=== PATIENT | female | born 1990 | race Caucasian/White ===

== ENCOUNTER 2024-03-17 13:55 | Emergency (ER) | payer OTHER, SELFPAY ==
[2024-03-17 14:02] VITALS: BP 127/79
[2024-03-17 14:23] LABS: % Basophils 0.1 % (0-2); % Immature Granulocytes 0.4 % (0-0.5); % Lymphocytes 11.4 % (20.5-51.1); % Monocytes 2.1 % (1.7-9.3); Absolute Immature Granulocytes 0.1 10^3/uL (0-0.05); Absolute Lymphocytes 1.6 10^3/uL (1.2-3.4); Absolute Monocytes 0.3 10^3/uL (0.1-0.6); Absolute Neutrophils 11.7 10^3/uL (1.4-6.5); Hematocrit 43.8 % (37.0-47.0); Hemoglobin 14.5 g/dL (12.0-16.0); Mean Corp Hgb Conc. 33.1 g/dL (33.0-37.0); Mean Corpuscular Volume 93.8 fL (81.0-99.0); Nucleated Red Blood Cells % 0 %; Platelet Count 278 10^3/uL (130-400); Red Blood Cell Count 4.67 10^6/uL (4.20-5.40); Red Cell Dist. Width 12.3 % (11.5-14.5); White Blood Cell Count 13.6 10^3/uL (4.8-10.8)
[2024-03-17 14:36] LABS: Amphetamines Negative (Negative); Barbiturates Negative (Negative); Benzodiazepines Negative (Negative); Buprenorphine Negative (Negative); Cocaine Negative (Negative); Marijuana Negative (Negative); Methadone Negative (Negative); Methamphetamines Negative (Negative); Opiates Negative (Negative); Phencyclidine Negative (Negative); Tricyclic Antidepressants Negative (Negative)
[2024-03-17 14:37] LABS: ALT (SGPT) 26 U/L (0-35); AST (SGOT) 26 U/L (14-36); Albumin 4.8 g/dl (3.5-5.0); Alkaline Phosphatase 49 U/L (38-126); Blood Urea Nitrogen 15 mg/dl (7-17); Calcium 9.6 mg/dl (8.4-10.2); Carbon Dioxide 22 mmol/L (22-30); Chloride 105 mmol/L (98-107); Glucose 97 mg/dl (70-99); Potassium 5.5 mmol/L (3.5-5.1); Sodium 139 mmol/L (135-145); Total Bilirubin 0.4 mg/dl (0.2-1.3); eGFR > 60.00
[2024-03-17 16:19] VITALS: BMI 21.7
[2024-03-17 16:21] VITALS: BP 106/72
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
[2024-03-17] MEDS: NSS 1000 IV ×2 (16:53→18:30)
[2024-03-17] MEDS: ZOFRAN 4 MG IV (16:54)
[2024-03-17 17:41] LABS: HCG, Urine Qualitative Screen Negative
[2024-03-17 18:01] LABS: Lipase 65 U/L (23-300)
[2024-03-17 19:00] VITALS: BP 104/68
== END 2024-03-17 21:30 | disposition home or self-care (01) ==
LOC: EMR 13:55
PROVIDERS: Emergency Medicine; EMERGENCY PHYSICIAN Emergency Medicine; FAMILY PHYSICIAN Family Medicine
DX: A08.4 Viral intestinal infection, unspecified (principal); E87.5 Hyperkalemia; Z79.3 Long term (current) use of hormonal contraceptives
CPT/HCPCS: 96374; 96361; 99284; 80053; 80306; 81025; 83690; 85025; 93005

== ENCOUNTER 2024-05-26 18:03 | Emergency (ER) | payer OTHER, SELFPAY ==
[2024-05-26 18:09] VITALS: BP 117/82
[2024-05-26 18:41] VITALS: BP 102/53
--- NOTE | 2024-05-26 18:49 | ED.GENMED ---
History of Present Illness
General
Chief Complaint: Chest Pain
Source: patient
Exam Limitations: none
Time Seen by Provider: 05/26/24 18:47
Nursing documentation reviewed up to this point in time: agreed with
History of Present Illness
History of Present Illness:
33-year-old female with a past medical history of anxiety, depression, who presents emergency department today with concerns of left-sided chest pain. Patient states that this pain woke her up from sleep this morning at around 5:30 AM. Patient
states that she took ibuprofen at that time which seemed to help and she is able to go back to sleep. Patient reports that she is pain-free multiple hours today but then an hour or 2 ago, her pain returned. Patient also states that she had
intermittent dizziness earlier which has resolved. She states that she also noticed when looking down at her Apple Watch today, her heart rate was elevated and the 110s to 120s at times. Patient denies any sensation of palpitations. Patient
denies any syncopal episodes. Of note, patient was evaluated in our emergency department 3 months ago and was noted to have a long QT interval on her EKG. Patient states that that has since resolved but she does have appointment scheduled with
cardiology group 6 days from today. Patient initially went to urgent care but her EKG there was noted to have a shortened ME interval and so she was sent to the ER for further evaluation. Patient does take oral control pills but she denies
any recent long distance travel any recent surgeries any recent hospitalizations.
Review of Systems
Review of Systems
All Other Systems: ROS reviewed and negative except as documented in HPI and ROS
Phy Exam
Physical Exam
Physical Exam:
General: Patient is well appearing and in no acute distress; non-toxic
Skin: Warm and dry, no rashes or lesions
Head: Normocephalic, atraumatic
Eyes: Sclera non-icteric. EOMs intact.
Cardiac: Regular rate and rhythm, no murmurs, no tenderness to palpation of the external chest wall
Peripheral Vascular: No lower extremity swelling or edema, no tenderness to palpation in the calves bilaterally
Pulm: Normal respiratory effort, no wheezes, rales, rhonchi
Abdomen: No abdominal tenderness to palpation
Neuro: CN II-XII intact, no focal neurologic deficits.
Psychiatric: Appropriate mood and affect.
Scores
Heart Score for Chest Pain Patients
STEMI patient?: No
History: Slightly or Non-Suspicious
ECG: Normal
Age: </= 45 years
Risk Factors: No Risk Factors
Troponin: </= Normal Limit
Heart Score for Chest Pain Patients: 0
Heart Score Risk: 2.5% MACE over next 6 weeks
Course
Orders/Labs/Results
Orders:
Orders
05/26/24 18:03
Electrocardiogram (*1) Urgent
Reason for Study: Other
Other Reason for Exam: abnormal EKG
05/26/24 18:04
EKG- Treatment ONCE
05/26/24 18:49
Complete Blood Count/With Diff Urgent
Comprehensive Metabolic Panel Urgent
HCG, Serum Qualitative Screen Urgent
Comment: ADD ON
Magnesium Urgent
Comment: ADD ON
Troponin I Urgent
05/26/24 18:50
Add On- LAB Urgent
Tests Added?: qualitative HCG
05/26/24 19:26
Add On- LAB Urgent
Tests Added?: magnesium
CR Chest - 2 Views Urgent
Comment:
Reason For Exam: left sided chest pain
05/26/24 19:38
D-Dimer Urgent
Abnormal Lab Results
05/26/24
18:49
MCH 31.2 H pg
(27.0-31.0)
MPV 10.9 H fL
(7.4-10.4)
Sodium 134 L mmol/L
(135-145)
Glucose 102 H mg/dl
(70-99)
05/26/24 18:49
05/26/24 18:49
Vital Signs
Initial and Last Documented VS:
Initial Vital Signs
Temp Pulse Resp BP Pulse Ox
98.3 F 90 16 117/82 100
05/26/24 18:09 05/26/24 18:09 05/26/24 18:09 05/26/24 18:09 05/26/24 18:09
Last Documented Vital Signs
Temp Pulse Resp BP Pulse Ox
98.3 F 82 12 108/61 100
05/26/24 18:09 05/26/24 21:00 05/26/24 21:00 05/26/24 21:00 05/26/24 19:00
MDM/Problems Addressed
Differential Diagnosis Includes:
ddx include PE, ACS, costochondritis, pneumothorax,
MDM/Problems Addressed:
33-year-old female with past medical history of anxiety presents emergency department today with concerns of left-sided chest pain. She also notes some tachycardia noted to her Apple Watch at home. Patient denies any syncopal episodes. In light
of tachycardia, use of OCPs, and chest pain at home, will send off D-dimer. Initial EKG shows normal sinus rhythm with no concerning ischemic changes. Troponin undetectable.
D-dimer negative. Chest x-ray shows no acute findings. Electrolytes within normal limits. Patient has a cardiology appointment scheduled 6 days from today in light of abnormal EKG noted in February where she had a prolonged QT however that has
since resolved on today's EKG. On reassessment, patient does not have any pain and states that she feels well. Patient stable for discharge with prompt outpatient follow-up. Return precautions discussed. Patient stable for discharge.
Chronic conditions affecting care:
anxiety
*Pulse Oximetry
Patient hypoxic: no
*EKG
Interpreted by ED Provider?: Yes
EKG Intrepretation Date: 05/26/24
Interpretation: normal
Comparison EKG: no changes
Heart Rate: 85
Rate: normal
Rhythm: sinus
[place]: normal axis
Interval: normal interval
*Critical Care Note
Total Time (30-74mins, 75-104mins- exclusive of procedures): Not Applicable
Data Reviewed
Review of Other/Old Records Reveals: Records (Reviewed previous ER physician documentation from 03/17/2024 patient seen for viral gastroenteritis)
ED Attending Note
-
Portions of this chart may have been created with voice recognition software.� Occasional wrong word or��sound alike� substitutions may have occurred due to the inherent limitations of voice recognition software.
Discharge Plan
Departure
Patient Disposition: Home (Routine Discharge)
Date of Disposition: 05/26/24
Time of Disposition: 21:22
Patient with high blood pressure during this ER visit?: Yes
Condition: Good
Discharge Problem:
Chest pain
Instructions: Chest pain
Prescriptions:
No Action
Hair,Skin and Nails Tablet
1 tab PO DAILY
drospirenone-ethinyl estradiol [[place]cella] 3-0.03 mg Tablet
1 tab PO DAILY
Wegovy 1.7 mg/0.75 mL Pen Injector
1.7 mg SC QWEEK
magnesium
1 tab PO DAILY
Patient Comments:
pt unsure of dose
Referrals:
Emir Hutton MD [Active] - Call in 1-3 days for appt
Corine Newton DO [Family Provider] -
Activity Restrictions/Additional Instructions:
Your troponin today was undetectable. Your D-dimer was normal. Your electrolyte levels were normal as well.
Please follow up with your scheduled cardiology appointment in 6 days.
PLEASE RETURN TO THE EMERGENCY DEPARTMENT SHOULD YOU DEVELOP LIGHTHEADEDNESS, DIZZINESS, ACUTE WORSENING OF YOUR SYMPTOMS, VISUAL LOSS, FAINTING SPELLS, SHORTNESS OF BREATH, OR ANY OTHER SIGNS OR SYMPTOMS CONCERNING TO YOU.
Interventions
Interventions:
*Risk Screen - Suicide Last Done: 05/26/24 18:09
*General Assessment Last Done: 05/26/24 18:09
*Neglect/Abuse Screening Last Done: 05/26/24 18:46
*ED- Fall Risk Assessment Last Done: 05/26/24 18:46
*ED COVID-19 Vaccine History Last Done: 05/26/24 18:46
*Nursing Disposition Last Done: 05/26/24 21:50
ED- Cardiac Assessment Last Done: 05/26/24 19:16
Discharge Date and Time
Discharge Date/Time: 05/26/24 21:50
Print Language: CHINESE
[2024-05-26 19:00] VITALS: BP 106/69
[2024-05-26 19:00] LABS: % Basophils 0.2 % (0-2); % Eosinophils 0.6 % (0-6); % Immature Granulocytes 0.1 % (0-0.5); % Lymphocytes 37.6 % (20.5-51.1); % Monocytes 7.1 % (1.7-9.3); % Neutrophils 54.4 % (42.2-75.2); Absolute Eosinophils 0.1 10^3/uL (0-0.7); Absolute Lymphocytes 3.3 10^3/uL (1.2-3.4); Absolute Monocytes 0.6 10^3/uL (0.1-0.6); Absolute Neutrophils 4.8 10^3/uL (1.4-6.5); Hematocrit 39.3 % (37.0-47.0); Hemoglobin 13.2 g/dL (12.0-16.0); Mean Corp Hgb Conc. 33.6 g/dL (33.0-37.0); Mean Corpuscular Hgb 31.2 pg (27.0-31.0); Mean Corpuscular Volume 92.9 fL (81.0-99.0); Mean Platelet Volume 10.9 fL (7.4-10.4); Nucleated Red Blood Cells % 0 %; Platelet Count 227 10^3/uL (130-400); Red Blood Cell Count 4.23 10^6/uL (4.20-5.40); Red Cell Dist. Width 12.4 % (11.5-14.5); White Blood Cell Count 8.8 10^3/uL (4.8-10.8)
--- NOTE | 2024-05-26 19:09 | EDRN ---
Pt woke at 0500 with sharp, needle like pain in L upper chest that felt 'very pointed.' Pt took 2 advil and went back to sleep. Pt went about her day and says her HR was in 100's. In afternoon, pt still felt the pin needle sensation. No sob,
periods of lightheadedness. Pt went to urgent care and had an ekg done that read as shortened pr interval so she was instructed to come to the ED. Pain in L upper chest went away after pt got into ED room. Pt says she feels good now. Pt has had
issues with tachycardia during which she will feel tightness in her chest but it never lasts as long as the pain today. Pt had little nausea earlier but it went away quickly and she has been able to eat normally. No abd pain, vomiting,
fever/chills/cough, urinary symptoms.
[2024-05-26 19:12] LABS: HCG, Serum Qualitative Screen Negative
[2024-05-26 19:15] LABS: ALT (SGPT) 17 U/L (0-35); AST (SGOT) 18 U/L (14-36); Albumin 3.9 g/dl (3.5-5.0); Alkaline Phosphatase 40 U/L (38-126); Blood Urea Nitrogen 17 mg/dl (7-17); Calcium 9.3 mg/dl (8.4-10.2); Carbon Dioxide 25 mmol/L (22-30); Chloride 103 mmol/L (98-107); Estimated Creatinine Clearance 78 ml/min; Glucose 102 mg/dl (70-99); Potassium 4.1 mmol/L (3.5-5.1); Sodium 134 mmol/L (135-145); Total Bilirubin 0.4 mg/dl (0.2-1.3); Total Protein 6.9 g/dl (6.3-8.2); eGFR > 60.00
[2024-05-26 19:27] LABS: Troponin I < 0.012 ng/ml
[2024-05-26 19:46] LABS: Magnesium 2.1 mg/dl (1.6-2.3)
[2024-05-26 20:16] VITALS: BP 106/67
[2024-05-26 20:36] LABS: D-Dimer < 0.27 ug/mlFEU (0.00-0.50)
[2024-05-26 21:00] VITALS: BP 108/61
== END 2024-05-26 21:50 | disposition home or self-care (01) ==
LOC: EMR 18:03
PROVIDERS: Physician Assistant; EMERGENCY PHYSICIAN Emergency Medicine; FAMILY PHYSICIAN Family Medicine
DX: R07.89 Other chest pain (principal); F41.9 Anxiety disorder, unspecified
CPT/HCPCS: 99283; 71046; 80053; 83735; 84484; 84703; 85025; 85379; 93005

== ENCOUNTER → 2024-06-11 08:18 | Outpatient (REF) | payer OTHER, SELFPAY | LOC: RCS 08:18 | PROVIDERS: ATTENDING PHYSICIAN Internal Medicine Cardiovascular Disease | DX: R00.2 Palpitations (principal) | CPT/HCPCS: 93225; 93226 ==